=== PATIENT | female | born 1955 | race Caucasian/White ===

== ENCOUNTER 2023-04-11 13:12 | Inpatient (IN) ==
[2023-04-11 17:23] LABS: Hematocrit 39.8 % (35-45); Hemoglobin 13.7 g/dL (11.5-14.3); Mean Corpuscular Hemoglobin 31.3 pg (27-33); Mean Corpuscular Hgb Conc 34.4 g/dL (31-36); Mean Corpuscular Volume 90.9 fL (80-97); Mean Platelet Volume 7.5 fL (7.5-11.2); Platelet Count 193 10^3/uL (150-450); Red Blood Count 4.38 10^6/uL (3.63-4.92); Red Cell Distribution Width 13.5 % (12-17)
[2023-04-11 17:39] LABS: Calcium 9.5 mg/dL (8.6-10.3); Creatinine, Serum 0.73 mg/dL (0.51-0.95); Magnesium 1.5 mg/dL (1.9-2.7); Phosphorus 3.2 mg/dL (2.5-5.0); Potassium 3.3 mmol/L (3.5-5.0); eGFR CKD-EPI 90.1 (>60)
[2023-04-11] MEDS ORDERED: Iodixanol (CONTRAST) 320 MG/ML 100 ML SDV IV ONE (18:17)
[2023-04-11] MEDS ORDERED: Magnesium Sulfate IV 1GM/100ML 1 GM/100 ML BAG IV ONE (19:39)
[2023-04-11] MEDS ORDERED: Potassium Chlor 20 meq TAB.ER PO ONE (19:39)
[2023-04-11] MEDS ORDERED: PTO: ICOSAPENT ETHYL 1 GM CAPSULE (NF) PO SCH (21:00)
[2023-04-11] MEDS: PTO: ICOSAPENT ETHYL 1 GM CAPSULE (NF) PO SCH (22:54)
[2023-04-12 05:32] LABS: Hematocrit 39.2 % (35-45); Hemoglobin 13.5 g/dL (11.5-14.3); Mean Corpuscular Hemoglobin 31.3 pg (27-33); Mean Corpuscular Hgb Conc 34.4 g/dL (31-36); Mean Corpuscular Volume 91.1 fL (80-97); Mean Platelet Volume 7.6 fL (7.5-11.2); Platelet Count 182 10^3/uL (150-450); Red Cell Distribution Width 13.7 % (12-17); White Blood Count 5.1 10^3/uL (3.8-11.8)
[2023-04-12 05:48] LABS: Creatinine, Serum 0.74 mg/dL (0.51-0.95); Potassium 3.8 mmol/L (3.5-5.0); eGFR CKD-EPI 88.6 (>60)
[2023-04-12] MEDS: PTO: ICOSAPENT ETHYL 1 GM CAPSULE (NF) PO SCH (08:59)
[2023-04-12 13:06] LABS: Magnesium 1.7 mg/dL (1.9-2.7)
[2023-04-12] MEDS ORDERED: Magnesium Sulfate IV 3 GM in NS 0.9% 100 ml BAG 100 ML IVPB ONE (13:08)
[2023-04-12] MEDS ORDERED: Lidocaine 1% MPF 5 ML VIAL ONE ×2 (14:35→14:36)
[2023-04-12 18:34] VITALS: BP 134/81
== END 2023-04-12 20:10 | disposition left against medical advice (07) | DRG 312 ==
LOC: ED 13:12 → EDHOLD 16:30 → SUATTDRO 16:30 → EDHOLD 17:45 → MEDTELE 18:11
PROVIDERS: ADMIT Internal Medicine; ATTEND Internal Medicine